=== PATIENT | female | born 1980 | race Caucasian/White ===

== ENCOUNTER → 2024-04-17 14:50 | Outpatient (CLI) | payer BC, SELFPAY ==
[2024-04-17 17:38] LABS: Influenza A - CEPHEID Flu A NEGATIVE (NEGATIVE); Influenza B - CEPHEID Flu B NEGATIVE (NEGATIVE); Respiratory Syncytial Virus Negative (Negative)
[2024-04-17 17:39] LABS: COVID-19 CEPHEID 4-PLEX PCR Negative (Negative)
== END ==
PROVIDERS: Visit Provider Physician Assistant Surgical
DX: R50.9 Fever, unspecified (principal); R05.9 Cough, unspecified; J02.9 Acute pharyngitis, unspecified
CPT/HCPCS: 0241U; 87070

== ENCOUNTER → 2024-04-17 14:55 | Outpatient (CLI) | payer BC, SELFPAY ==
--- NOTE | 2024-04-17 14:58 | DI.RAD.S_ITS ---
PROCEDURE: XR CHEST 2V INDICATIONS: Rhonchi, cough TECHNIQUE: 2 views of the chest were acquired. COMPARISON: None. FINDINGS: Surgical changes and devices: None. Lungs and pleura: Retrocardiac left lower lobe infiltrate is seen. Mild generalized interstitial prominence can be seen. No pneumothorax or pleural effusions are seen. Mediastinum: Mediastinal contours are normal. Heart size is normal. Bones and chest wall: No suspicious bony abnormalities. Soft tissues appear unremarkable. IMPRESSION: Focal retrocardiac left lower lobe infiltrate. Generalized interstitial prominence can be seen, which may be related to pulmonary edema. Dictated by: Aren Singh M.D. on 04/17/2024 at 14:22 Approved by: Aren Singh M.D. on 04/17/2024 at 14:23
== END ==
PROVIDERS: Referring Provider Physician Assistant Surgical; Visit Provider Physician Assistant Surgical
DX: J02.9 Acute pharyngitis, unspecified (principal); R09.89 Other specified symptoms and signs involving the circulatory and respiratory systems; R91.8 Other nonspecific abnormal finding of lung field; R50.9 Fever, unspecified; R05.9 Cough, unspecified
CPT/HCPCS: 0241U; 71046; 87070

== ENCOUNTER → 2024-05-05 10:07 | Outpatient (CLI) | payer BC, SELFPAY ==
[2024-05-05 11:05] LABS: COVID-19 CEPHEID 4-PLEX PCR Negative (Negative); Influenza A - CEPHEID Flu A NEGATIVE (NEGATIVE); Influenza B - CEPHEID Flu B NEGATIVE (NEGATIVE); Respiratory Syncytial Virus Negative (Negative)
== END ==
PROVIDERS: Visit Provider Physician Assistant
DX: R05.9 Cough, unspecified (principal)
CPT/HCPCS: 0241U

== ENCOUNTER → 2024-05-05 10:08 | Outpatient (CLI) | payer BC, SELFPAY ==
--- NOTE | 2024-05-05 10:10 | DI.RAD.S_ITS ---
PROCEDURE: XR CHEST 2V INDICATIONS: severe cough, f/u on pneumonia TECHNIQUE: 2 views of the chest were acquired. COMPARISON: [facility], CR, XR CHEST 2V, 04/17/2024, 15:03. FINDINGS: Surgical changes and devices: None. Lungs and pleura: Lungs are clear. Complete interval resolution of previously described pneumonia. No pleural effusions or pneumothorax. Mediastinum: Mediastinal contours are normal. Heart size is normal. Bones and chest wall: No suspicious bony abnormalities. Soft tissues appear unremarkable. IMPRESSION: No acute cardiopulmonary abnormality is seen. Complete interval resolution of pneumonia. Dictated by: Jefferson Abrams M.D. on 05/05/2024 at 18:19 Approved by: Jefferson Abrams M.D. on 05/05/2024 at 18:20
== END ==
PROVIDERS: Referring Provider Physician Assistant; Visit Provider Physician Assistant
DX: J40 Bronchitis, not specified as acute or chronic (principal); R05.9 Cough, unspecified; Z87.01 Personal history of pneumonia (recurrent)
CPT/HCPCS: 0241U; 71046